=== PATIENT | male | born 1945 | race Caucasian/White ===

== ENCOUNTER 2017-01-08 06:50 | Day surgery (SDC) | payer MEDICARE ==
[~2017-01-08] VITALS: Ht 182.9 cm; Wt 78.6 kg
[2017-01-08] VITALS (9 sets, daily range): BP systolic 92–113; BP diastolic 26–65; PULSE 55–65; RESP 20; TEMP 97.6–97.7; O2SAT 94–99
[~2017-01-08 06:50] MED LIST: 1-ME1LIQ PO; ASPI81TA82 PO; DULE100A PO; GLUC10TA3 PO; LISI-363 PO; LORTA5 PO; PROT40TA PO; ROSU20 PO
[2017-01-08] MEDS ORDERED: LISI-515 PO (07:36)
[2017-01-08] MEDS ORDERED: GLIP10TA6 PO (07:36)
[2017-01-08] MEDS ORDERED: AMLO10TA2 PO (07:36)
[2017-01-08] MEDS ORDERED: ASPI81CH CHEW (07:36)
[2017-01-08 07:58] LABS: AUTOMATED NEUTROPHIL # 5.2 TH/MM3 (1.8-7.7); BASOPHIL % 0.5 % (0.0-2.0); EOSINOPHIL # 0.1 TH/MM3 (0-0.4); EOSINOPHIL % 1.3 % (0.0-4.0); HEMATOCRIT 42.1 % (39.0-51.0); LYMPH % 10.4 % (9.0-44.0); LYMPHOCYTE # 0.7 TH/MM3 (1.0-4.8); MEAN CELL VOLUME 93.1 FL (80.0-100.0); MEAN CORPUSCULAR HEMOGLOBIN 31.4 PG (27.0-34.0); MEAN CORPUSCULAR HGB CONC 33.8 % (32.0-36.0); MONO % 8.3 % (0.0-8.0); NEUT % 79.5 % (16.0-70.0); PLATELET COUNT 85 TH/MM3 (150-450); RED BLOOD COUNT 4.52 MIL/MM3 (4.50-5.90); RED CELL DISTRIBUTION WIDTH 13.7 % (11.6-17.2); WHITE BLOOD COUNT 6.6 TH/MM3 (4.0-11.0)
[2017-01-08 08:00] LABS: HEMO FLAGS AUTO DIFF
[2017-01-08] MEDS ORDERED: SODIUM CHLOR 0.9% 1000 ML IV SCH (08:00)
[2017-01-08] MEDS ORDERED: LIDOCAINE 1%/EPINEPHrine 1:100,000 SOLN 20 ML VIAL ONE (08:03)
[2017-01-08 08:06] LABS: APTT (PATIENT) 27.8 SEC (24.3-30.1); INTERNATIONAL NORMALIZED RATIO 1.1 RATIO; PROTHROMBIN TIME - PATIENT 11.9 SEC (9.8-11.6)
[2017-01-08] MEDS ORDERED: MIDAZOLAM HCL 5 MG/5 ML VIAL ONE (08:18)
[2017-01-08] MEDS ORDERED: fentaNYL CITRATE 250 MCG/5 ML AMP ONE (08:18)
[2017-01-08 08:42] LABS: PLATELET ESTIMATE SMEAR LOW (NORMAL); PLATELET MORPHOLOGY NORMAL (NORMAL); SCAN/DIFF AUTO DIFF CONFIRMED
[2017-01-08] MEDS ORDERED: IOHEXOL 350 MG/ML 10 ML VIAL (for RAD DIAG) IV ONE (09:44)
--- NOTE | 2017-01-08 12:27 | RADRPT ---
EXAM DATE/TIME: 01/08/2017 08:34 [facility] COMPARISON: No previous studies available for comparison. INDICATIONS : Cirrhosis. SEDATION TIME: 30 minutes BIOPSY SITE: Right MEDICATION(S): 1.) 4 mg midazolam (Versed) IV 2.) 200 mcg fentanyl (Sublimaze) IV DEVICE(S): 1.) 18 gauge BioPince needle MEDICAL HISTORY : Cirrhosis. Hepatitis C. SURGICAL HISTORY : None. ENCOUNTER: Initial ACUITY: 1 day PAIN SCORE: 0/10 LOCATION: Right A total of one core specimen(s) were obtained and sent to the laboratory for pathologic evaluation. PROCEDURE: 1. CT guided liver biopsy. 2. Conscious sedation with continuous EKG and oximetry monitoring. 3. EKG and oximetry remained stable throughout the procedure. Prior to the procedure informed consent was obtained. Primary contrasted CT study is abnormal with p ortal vein thrombosis and intrahepatic biliary duct dilatation. Any appropriate prior imaging studies were reviewed. The site was prepped in a sterile fashion. Full sterile technique was used, including cap, mask, richmond rile gloves and gown and a large sterile sheet. Hand hygiene and 2% chlorhexidine and/or betadine/al cohol prep was utilized per protocol for cutaneous antisepsis. The skin and subcutaneous tissues wer e infiltrated with local anesthetic solution. With CT guidance the previously identified target was localized. Biopsy was performed using the presc ribed needle as above. Adequate hemostasis was obtained with compression at the puncture site. Follow-up CT scan reveals no hemorrhage. The patient tolerated the procedure well and there were no complications. The patient was returned to the Radiology Outpatient Unit in stable condition. CONCLUSION: Uncomplicated CT guided biopsy for function. Everardo Huerta MD FACR on January 08, 2017 at 12:24 Board Certified Radiologist. This report was verified electronically.
--- NOTE | 2017-01-08 13:41 | RADRPT ---
EXAM DATE/TIME: 01/08/2017 08:34 [facility] COMPARISON: No previous studies available for comparison. INDICATIONS: Possible liver mass. IV CONTRAST: 83 cc Omnipaque 350 (iohexol) IV ORAL CONTRAST: No oral contrast ingested. RADIATION DOSE: 13.82 CTDIvol (mGy) MEDICAL HISTORY: Cirrhosis. Hepatitis C. SURGICAL HISTORY: None. ENCOUNTER: Initial ACUITY: 1 day PAIN SCALE: 0/10 LOCATION: Right TECHNIQUE: Volumetric scanning of the abdomen and pelvis was performed. Using automated exposure control and ad justment of the mA and/or kV according to patient size, radiation dose was kept as low as reasonably achievable to obtain optimal diagnostic quality images. FINDINGS: CT scan with intravenous contrast was performed prior to attempted biopsy of a portahepatis mass. Repeat CT scan with intravenous contrast using bolus injection enhancement reveals intrahepatic duct dilatation with common bile duct dilated into the head of the pancreas. There is a portal vein thrombosis with cavernous transformation of the portal vein. In addition, the superior mesenteric vein and splenic vein are thrombosed as well. Extensive mesenteric and retroperitoneal collaterals are noted. A focal mass in the liver is not appreciated. ERCP would be of benefit to further evaluate the head of the pancreas and common ductal dilatation. Common duct does end somewhat abruptly right in the head of the pancreas. Endoscopic ultrasound could also give more information about the head of the pancreas as well. There is no adenopathy present. There is symmetric renal function. There are no ancillary signs of malignancy. Diverticula are present in the sigmoid colon. CONCLUSION: 1. Intrahepatic biliary ductal dilatation with common bile duct dilated into the head of the pancrea s. 2. Chronic portal vein thrombosis with cavernous transformation. 3. 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 4. ERCP and EUS of the pancreas would be of benefit. Everardo Huerta MD FACR on January 08, 2017 at 10:51 Board Certified Radiologist. This report was verified electronically.
== END 2017-01-08 13:00 | disposition home or self-care (01) ==
LOC: HRAD 06:50 → EDSTATUS 07:00 → HRIP 07:19 → HRAD 13:00
PROVIDERS: ATTEND Internal Medicine Gastroenterology
DX: K74.60 Unspecified cirrhosis of liver (principal); B19.20 Unspecified viral hepatitis C without hepatic coma; I81 Portal vein thrombosis
CPT/HCPCS: 47000; 74177; 77012; 85025; 85610; 85730; 88307; 88313; J2250; J3010; Q9967

== ENCOUNTER 2017-11-17 05:50 | Day surgery (SDC) | payer MEDICARE ==
[~2017-11-17] VITALS: Ht 182.9 cm; Wt 66.5 kg
[~2017-11-17 05:50] MED LIST changes: -1-ME1LIQ PO; +AMLO10TA2 PO; +ASPI-516 CHEW; -ASPI81TA82 PO; -DULE100A PO; +GLIP10TA6 PO; -GLUC10TA3 PO; -LISI-363 PO; +LISI-515 PO; -LORTA5 PO; -PROT40TA PO; -ROSU20 PO
[2017-11-17] MEDS ORDERED: LACTATED RINGER'S 1000 ML IV PRN (06:30)
[2017-11-17] MEDS ORDERED: NS 1000 ML IV SCH (06:30)
[2017-11-17] MEDS ORDERED: VANCOMYCIN 1000 MG/NS 250 ML IV SCH ×2 (06:30)
[2017-11-17] MEDS ORDERED: ceFAZolin 2 GM PREMIX 50 ML IV SCH (06:30)
[2017-11-17] MEDS ORDERED: LORazepam 1 MG TAB SL SCH (06:30)
[2017-11-17] MEDS ORDERED: CHLORHEXIDINE GLUCONATE 2 % 1 PACK (2 CLOTHS) TOPICAL PRN (06:30)
[2017-11-17] MEDS ORDERED: Hold AM Insulin & AM Hypoglycemic medications in diabetic patients PRN (06:30)
[2017-11-17] MEDS ORDERED: POVIDONE IODINE 5% (ANTISEPSIS KIT) 4 APPLICATIONS EACH NARE PRN (06:30)
[2017-11-17] MEDS ORDERED: CHLORHEXIDINE GLUCONATE 2 % 1 PACK (2 CLOTHS) TOPICAL SCH (06:30)
[2017-11-17] MEDS ORDERED: POVIDONE IODINE 5% (ANTISEPSIS KIT) 4 APPLICATIONS EACH NARE SCH (06:30)
[2017-11-17] MEDS ORDERED: MUPIROCIN 2% OINT 1 APPLIC/GM SYR NASAL SCH (06:30)
[2017-11-17] MEDS ORDERED: METOPROLOL TARTRATE 25 MG TAB PO PRN (06:30)
[2017-11-17] MEDS ORDERED: SODIUM CHLORID 0.9% 500 ML IV PRN (06:30)
[2017-11-17] MEDS ORDERED: ATOR80TA45 PO (06:57)
[2017-11-17 06:59] VITALS: BP 130/57; PULSE 39; RESP 18; TEMP 98.8; O2SAT 92
[2017-11-17 06:59] LABS: HEMATOCRIT 35.2 % (39.0-51.0); MEAN CELL VOLUME 89.3 FL (80.0-100.0); MEAN CORPUSCULAR HGB CONC 33.6 % (32.0-36.0); PLATELET COUNT 60 TH/MM3 (150-450); RED BLOOD COUNT 3.95 MIL/MM3 (4.50-5.90); RED CELL DISTRIBUTION WIDTH 14.7 % (11.6-17.2); WHITE BLOOD COUNT 4.8 TH/MM3 (4.0-11.0)
[2017-11-17] MEDS ORDERED: PROPOFOL 200 MG/20 ML AMP ONE ×2 (06:59→15:33)
[2017-11-17 07:01] LABS: HEMO FLAGS AUTO DIFF
[2017-11-17 07:10] LABS: APTT (PATIENT) 29.6 SEC (24.3-30.1); INTERNATIONAL NORMALIZED RATIO 1.2 RATIO
[2017-11-17 07:19] LABS: BICARBONATE 26.4 MEQ/L (21.0-32.0)
[2017-11-17 07:21] LABS: POTASSIUM 2.5 MEQ/L (3.5-5.1)
[2017-11-17 07:38] LABS: BANDS 3 % (0-6); EOSINOPHILS 4 % (0-4); NEUTROPHIL # MANUAL DIFF 3.6 TH/MM3 (1.8-7.7); POLYS (SEG NEUTROPHILS) 71 % (16-70); WBC DIFF SAMPLE 100
[2017-11-17 07:40] LABS: KERATOCYTES OCC (NORMAL); OVALOCYTES 1+ (NORMAL); PLATELET ESTIMATE SMEAR LOW (NORMAL); PLATELET MORPHOLOGY NORMAL (NORMAL); SCAN/DIFF FINAL DIFF MANUAL
[2017-11-17] MEDS ORDERED: NS + KCL 40 MEQ INJ 1,000 ML IV SCH (08:30)
[2017-11-17] MEDS ORDERED: POTASSIUM CHLORIDE INJ 40 MEQ in SODIUM CHLORID 0.9% 500 ML INJ 500 ML IV SCH (09:00)
[2017-11-17] MEDS ORDERED: POTASSIUM CHLORIDE 20 MEQ PWD PACKET PO ONE (09:00)
--- NOTE | 2017-11-17 14:20 | EKG ---
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
[2017-11-17 14:27] LABS: BICARBONATE 23.4 MEQ/L (21.0-32.0); POTASSIUM 6.1 MEQ/L (3.5-5.1)
[2017-11-17] MEDS ORDERED: MIDAZOLAM HCL 2 MG/2 ML VIAL ONE (15:33)
[2017-11-17] MEDS ORDERED: VANCOMYCIN 500 MG VIAL ONE (15:40)
[2017-11-17] MEDS ORDERED: ceFAZolin INJ 1,000 MG VIAL ONE (15:40)
[2017-11-17] MEDS ORDERED: SODIUM CHLOR 0.9% 250 ML INJ 250 ML ONE (15:40)
[2017-11-17] MEDS ORDERED: VANCOMYCIN HCL 1000 MG VIAL ONE (15:40)
[2017-11-17] MEDS ORDERED: LIDOCAINE HCL 2% 50 ML VIAL ONE (15:40)
--- NOTE | 2017-11-17 16:37 | PD.CARD ---
PPM GENERATOR REPLACEMENT PROCEDURE DATE: Nov 17, 2017 PPM GENERATOR REPLACEMENT PROC PROCEDURE PERFORMED Permanent pacemaker removal, permanent pacemaker replacement, pocket revision. Mr. Pierre is a 72 -year-old male with history of severe bradycardia , pacemaker end of life admits for pacer generator replacement. The risks, the nature and the benefit of the procedure were clearly stated to him. The risks include pneumothorax, cardiac perforation, stroke and even . The patient understood and agreed to proceed. PROCEDURE After written informed consent was obtained, the patient was brought to the EP lab where was prepped and draped in the sterile fashion. Conscious sedation was initiated using intravenous Versed and introducer intravenous fentanyl. Once sedation was verified, the left infraclavicular area over the generator was anesthetized with 2% Xylocaine. Using a #11 scalpel, a 3 centimeter incision was made over the existing generator. Dissection was then taken down to deep fascial layer using Bovie cautery and blunt dissection. Once exposed, the generator was removed from the pocket. The pocket was expanded. Scar tissue was removed around the leads. Then, the leads were disconnected and tested. At that point, the pocket was copiously irrigated using antibiotic solution. The leads were connected to the new generator and placed into the pocket. The pacemaker was interrogated. He was A-pacing, V-sensing. I did proceed with wound closure. The deep fascial layer was approximated with 2-0 Vicryl suture in a continuous fashion. The subcutaneous layer was approximated with 2-0 Vicryl suture in a continuous fashion. Dermabond adhesive was applied to the wound followed by a sterile pressure dressing. There was no complication. The patient tolerated procedure. Blood loss minimal. EXPLANTED HARDWARE The explanted permanent pacemaker is a [employer]. Model# 5826 serial number [id number]. For information about the existing leads, please refer to previous dictation. IMPLANTED HARDWARE The implanted permanent pacemaker is a [employer] model number [id number], serial number [id number]. THRESHOLDS The right atrial pacing threshold in bipolar mode was 1.2 volt at 0.5 milliseconds. Lead impedance 430 ohms and P wave at 4.0 millivolts. The right ventricular pacing threshold in bipolar mode was 1.0 volts at 1.0 milliseconds. Lead impedance 380 ohms. R wave 4.7mV. SETTINGS The device is set in a DDD 60. Upper limit 120 beats per minute. Hysteresis and mode switch are on. CONCLUSIONS Successful permanent pacemaker removal, permanent pacemaker implantation, pocket revision. COMMENT AND RECOMMENDATIONS The patient will be transferred to the telemetry unit. He will be observed. The patient will be discharged home later on today. Barbara Romero MD Nov 17, 2017 16:37
--- NOTE | 2017-11-17 16:40 | CATHPROC ---
[employer] HIS Report Study Information Study Number Admission Scheduled Start Study Start [id number] Nov 17 2017 5:50AM 11/17/2017 Nov 17 2017 6:29AM [place] Service Cardiac Pacer/ICD Admit Source Facility Department Other [facility] - Assembler Equipment Physician and Clinical Staff Initial Barbara Huston Manager Exchange Kylee Wilkins,RT(R) TECH2 Other Anesthesia, MAIL COURIER Recorder Nohemi Christensen,PATRICE Scrub Claribel Valenzuela RCIS Equipment Time Instrument Lens Grinder Apprentice Description Size Mfg Part Number Used/Scraped DERMABOND, ADHESIVE SKIN [id number] 06:34 CORDIS/PACER * Used GLUE MINI *[id number] DERMABOND, ADHESIVE SKIN DHVM12 15:27 CORDIS/PACER * Used GLUE MINI *[id number] DERMABOND, ADHESIVE SKIN DHVM12 16:07 CORDIS/PACER * Used GLUE MINI *[id number] [id number] 15:27 MEDLINE INDUSTRIES SUTURE, STRIP PLUS 1/2" * Used *[id number] TP-1103 06:34 MEDLINE INDUSTRIES SUTURE, STRIP PLUS 1/2" * Used *[id number] TP-1103 16:07 MEDLINE INDUSTRIES SUTURE, STRIP PLUS 1/2" * Used *[id number] 16:07 MEDLINE PACER SWEET, LIMB * 2530 *[id number] Used 06:34 MEDLINE PACER SWEET, LIMB * 2530 *[id number] Used 15:27 MEDLINE PACER SWEET, LIMB * 2530 *[id number] Used [id number] 15:27 MEDLINE PACER PACK, PACER CUSTOM * Used *[id number] 06:34 MEDLINE PACER PACK, PACER CUSTOM * Used *[id number] 16:07 MEDLINE PACER PACK, PACER CUSTOM * Used *[id number] 16:15 Needle Sponge Count 1 1 Used 16:15 Needle Sponge Count 20 200 Used SUTURE, 2-0 VICRYL [CT1] ([id number]) SUTURE, 2-0 VICRYL [CT1] ([id number]) SUTURE, 2-0 VICRYL [CT1] (GMQ781I) [id number] 16:07 [employer] BLANKET,WARM AIR CCL * Used *[id number] 06:34 [employer] BL[employer],WARM AIR CCL * Used *[id number] 15:27 [employer] BL[employer],WARM AIR CCL * Used *[id number] PACEMAKER, ASSURITY DR MULLINS 16:13 [facility] [facility] [id number] Used MRI [facility] PAD, ELECTROSURGICAL 15:27 * [id number] *[id number] Used SURGICAL GROUNDING ORANGE [facility] PAD, ELECTROSURGICAL 06:34 * E7507 *[id number] Used SURGICAL GROUNDING ORANGE [facility] PAD, ELECTROSURGICAL 16:07 * E7507 *[id number] Used SURGICAL GROUNDING ORANGE [id number] 16:07 VITATRON [employer] PLASMABLADE, PEAD 3.0S * Used *[id number] Equipment Model, Serial, Lot Number and Expiration Data Description Model Number Serial Number Lot Number Expiration Date PACEMAKER, ANNABEL MULLINS MRI [id number] 03-21-2019 History: Allergies Allergy Reaction No Known Allergies History: Risk Factors Hypertension Dyslipidemia Yes Yes Chronic Lung Diabetes Disease Medication Medication Total Dose (Bolus/Oral) Medication Total Dosage/Unit 2% XYLOCAINE 50 mL Medications (Bolus/Oral) Medication Time Given Dosage/Unit Administered By Reason 2% XYLOCAINE 11/17/2017 4:11:02 PM 50 mL Barbara Romero 50 mL 2% XYLOCAINE given in lab by Barbara Romero in Left shoulder via Subcutaneous. Ordered by Barbara Romero. Medication (Drip) Medication Time Given Dosage/Unit Concentration/Unit Diluent (ml) Solution ANCEF 11/17/2017 3:49:20 PM 2 g 2 g ANCEF given in lab by Anesthesia, MAIL COURIER via Peripheral IV. Ordered by Barbara Romero. Reason: As pe r physicians verbal order. VANCOMYCIN DRIP 11/17/2017 3:49:32 PM 1 g 1 g VANCOMYCIN DRIP given in lab by Anesthesia, MAIL COURIER via Peripheral IV. Ordered by Barbara Romero. Anahi son: As per physicians verbal order. Initial Case Assessment Cardiovascular HR Rhythm NIBP Chest Pain 57 paced 166/74 0 Edema Present Skin color Skin None Normal Warm Dry Circulatory - Right Pulses Dorsalis Pedis 1 Scale (0,1,2,3,4,d) Circulatory - Left Pulses Dorsalis Pedis 1 Scale (0,1,2,3,4,d) Circulatory - Lower Extremities Color Lower Right Color Lower Left Normal Normal Neurological State Oriented to time-place- Alert Moves all extremities person Respiration - General Respiration Rate SpO2 (%) (B/min) 20 96 Final Case Assessment Cardiovascular HR NIBP Chest Pain 62 95/56 0 Edema Present Skin color Skin None Normal Warm Dry Circulatory - Right Pulses Dorsalis Pedis 1 Scale (0,1,2,3,4,d) Circulatory - Left Pulses Dorsalis Pedis 1 Scale (0,1,2,3,4,d) Circulatory - Lower Extremities Color Lower Right Color Lower Left Normal Normal Neurological State Lethargic Moves all extremities Respiration - General Respiration Rate SpO2 (%) (B/min) 20 95 Chronological Log Time Study Chronological Log 15:35:19 Patient arrived via Bed. 15:35:20 Patient Name, D.O.B, / Armband Verified By R.N. 15:35:21 History and physical on the chart. 15:35:22 Consent signed by the physician and the patient and verified by the Assembler Equipment staff. 15:35:23 Pre-op and post- op instructions given; patient acknowledges understanding of instructions. 15:35:24 Anesthesia at bedside. Assumes care of patient. 15:35:26 Patient has been NPO for Less than 6Hrs. 15:36:10 Pre-op and post- op instructions given; patient acknowledges understanding of instructions. 15:36:40 Presedation assessment performed by Assembler Equipment RN. 15:36:45 Verbal Stimulation=2 Physical Stimulation=2 Airway=2 Respiration=2 TOTAL=8. (0=absent, 1=li mited, 2=present) 2 g ANCEF given in lab by Anesthesia, MAIL COURIER via Peripheral IV. Ordered by Hanscy. Heather Reason: As per physicians 15:49:20 verbal order. 1 g VANCOMYCIN DRIP given in lab by Anesthesia, MAIL COURIER via Peripheral IV. Ordered by Dexter Romero Reason: As per 15:49:32 physicians verbal order. 15:49:51 Skin Breakdown- none per pt. 15:50:07 Patient Warmer Placed on the Table. 15:50:09 Disposable Defibrillator Pads Placed On Patient. 15:50:09 Brooke Prominences Protected 15:50:10 Bovie ground pad applied to: right thigh. 15:50:13 A # 20 IV was noted in the lower Forearm (right). Grade = 0 0.9%NaCl at kvo. 15:50:41 A # 20 IV was noted in the upper Forearm (right). Grade = 0 0.9%NaCl at kvo. 15:51:51 Table restraints applied according to hospital policy Assessment: Initial Case, HR=57 BPM, Rhythm=paced, QMNV=964/74 mmhg, Chest Pain=0, Edema=None, Color=Normal, Skin = Warm, Dry Right Pulses: Jeet Ped=1 Left Pulses: Jeet Ped=1 15:52:10 Lower Right Extremities: Color=Normal Lower Left Extremities: Color=Normal Neurological: State=Alert, Ox3, [place] Respiration: Resp=20 B/min, SpO2=96 % 15:53:29 all vital signs will be recorded during procedure by anesthesia 15:53:29 Reference ECG taken 15:54:10 Left Upper Chest Prepped Times Two. 15:55:53 2% CHLORHEXIDINE GLUCONATE WASH AND NASAL SWIPE DONE PRIOR TO PROCEDURE. First Sponge And Instrument Count Done by Claribel Valenzuela RCIS. 15:57:08 Hypo's: 1, Sponges: 20, Bovie/scratch: bovie/scratch Sutures: 2, Blades: 1, Instruments: 27, Syveck Patches: ~SYVECK PATCH~ verified with TF 15:59:25 MD paged 16:00:17 MD responded 16:07:24 MD arrived. Time Out. Correct patient, procedure, procedure equipment, site and side verified with physicia n present. Time 16:09:32 concurred by MD, individual staff and MAIL COURIER. Time Out #2 - Consents verified, patient in correct position, all results are labled and displa yed, safety precautions 16:10:36 taken, antibiotics administered. Time out concurred by MD, individual staff and MAIL COURIER in procedu re 16:10:37 Case Start 16:11:02 50 mL 2% XYLOCAINE given in lab by Barbara Romero in Left shoulder via Subcutaneous. Ordered by Barbara Romero. 16:11:36 Surgical Incision Made. 16:13:41 A pocket was created at the L Upper Chest. 16:13:58 Pocket flushed with antibiotic solution 16:15:41 A device was explanted. 16:15:50 A PACEMAKER, ANNABEL MULLINS MRI was connected and placed in the pocket. 16:18:48 Implant Procedure was performed. 16:18:49 A PPM Implant . (Dual) SECOND Sponge And Instrument Count Done by Claribel Valenzuela RCIS. 16:20:42 Hypo's: 1, Sponges: 20, Bovie/scratch: bovie/scratch Sutures: 2, Blades: 1, Instruments: 27, Syveck Patches: ~SYVECK PATCH~ verified with TF 16:21:50 Implantable Device card placed in patient's chart. 16:22:34 DOCU called. Spoke to Carley. 16:22:36 Holding Area notified of successful intervention. 16:22:56 Bedside Report will be given. 16:25:04 Steri-strips and a sterile dressing applied to site. Final Sponge And Instrument Count Done by Claribel Valenzuela RCIS. 16:26:39 Hypo's: 1, Sponges: 20, Bovie/scratch: bovie/scratch Sutures: 2, Blades: 1, Instruments: 27, Syveck Patches: ~SYVECK PATCH~ verified with TF Assessment: Final Case, HR=62 BPM, NIBP=95/56 mmhg, Chest Pain=0, Edema=None, Color=Normal, Sk in = Warm, Dry Right Pulses: Jeet Ped=1 Left Pulses: Jeet Ped=1 16:28:55 Lower Right Extremities: Color=Normal Lower Left Extremities: Color=Normal Neurological: State=Lethargic, [place] Respiration: Resp=20 B/min, SpO2=95 % 16:28:57 Case End 16:34:48 No case complications noted. 16:35:15 Cine recording checked. 16:36:22 Defibrillator and ground pads removed. Skin intact. 16:40:29 [facility] - [facility] Media Used In Study Contrast Total Opened (mL) Total Used (mL) Total Wasted (mL) Unspecified 0 0 0 End Study - Radiation Exposure Fluoro Time (minutes) 0.3 End Study - Patient Disposition Complications Transferred To Interventional Outcome No Telemetry Bed successful
[2017-11-17] MEDS ORDERED: HYDR-3366 PO (16:43)
[2017-11-17] MEDS ORDERED: CEPH-460 PO (16:43)
[2017-11-17] MEDS ORDERED: SODIUM CHLORIDE 0.9% FLUSH 10 ML FLUSH IV FLUSH PRN (16:45)
[2017-11-17] MEDS ORDERED: ONDANSETRON HCL 4 MG/2 ML VIAL IV PUSH PRN (16:45)
[2017-11-17] MEDS ORDERED: SODIUM CHLORIDE 0.9% FLUSH 10 ML FLUSH IV FLUSH SCH (21:00)
== END 2017-11-17 18:05 | disposition home or self-care (01) ==
LOC: HDIC 05:50 → HDOC 05:50
PROVIDERS: ATTEND Internal Medicine Interventional Cardiology
DX: Z45.010 Encounter for checking and testing of cardiac pacemaker pulse generator [battery] (principal); I44.7 Left bundle-branch block, unspecified; I11.9 Hypertensive heart disease without heart failure; I25.10 Atherosclerotic heart disease of native coronary artery without angina pectoris; E11.9 Type 2 diabetes mellitus without complications; R00.1 Bradycardia, unspecified; R06.02 Shortness of breath; J44.9 Chronic obstructive pulmonary disease, unspecified; F17.200 Nicotine dependence, unspecified, uncomplicated
CPT/HCPCS: 00400; 33228; 80048; 84132; 85007; 85027; 85610; 85730; 86850; 86900; 86901; 93005; C1785; J0690; J2250; J3010; J3370; J3480; J7040; J7050